=== PATIENT | female | born 1965 | race Caucasian/White ===

== ENCOUNTER → 2017-08-22 | Outpatient (CLI) | payer BC ==
[~2017-08-22] MED LIST: ASPI-482 PO; ATOR20TA58 PO; BENZ-8 PO; CYAN10005 PO; FOLI1TAB16 PO; GABA-586 PO; GLIP5TAB10 PO; IOHEXOL 180 MG/ML 10 ML VIAL. ONE; METF500T4 PO; methylPREDNISolone ACETATE 40 MG/ML VIAL. ONE; methylPREDNISolone ACETATE 80 MG/ML VIAL. ONE
--- NOTE | 2017-08-22 21:23 | PAIN ---
DATE OF SERVICE: 08/22/2017 INITIAL CONSULTATION FOR PAIN CLINIC CHIEF COMPLAINT: Low back and right lower extremity pain. HISTORY OF PRESENT ILLNESS: This is a 52-year-old female who presents with history of pain in the low back, bilateral lower extremities, much worse on the right than the left and going on for about a year and a half and increasing, not a result of any specific injury or accident that she is aware of, but is gradually increasing low back, bilateral lower extremities, mostly in the posterior gluteus, posterior thigh on the right posterior calf and into the foot involving all the toes and numbness and tingling is becoming more constant, throbbing, shooting pain, aching in the right leg as well, worse with standing, walking, changing positions, better with sitting down or lying down, but awakens her from sleep occasionally if she lays on her right side. The patient reports not every night. The patient reports it does not affect her bowel or bladder control, but does affect her ability to walk. She has been stumbling, but not had any falls and she feels that her right leg fatigues much more easily than the left with even just normal activity and walking. The patient reports no complete loss of function, but again significant fatigability. She has tried the gabapentin, which has not been helpful, also some chiropractic treatment in the past, which helped, but it has been almost a year since she has had any of this, has had no other formal physical therapies or other treatments at this time. She is doing some stretching on her own and trying to walk daily, but is becoming much more difficult and uncomfortable. On patient's disability rating, she rates her disability from 0-10, 10 being the worst, as an 8 with family, home responsibilities, recreation, social activity, and sexual behavior, 9 with occupation, 6 with self care, and 0 with life support activity. PAST MEDICAL HISTORY: Significant for type 2 diabetes, sinus congestion, cigarette smoking, smokes about a half pack a day and currently smokes, arthritis, kidney disease with some chronic renal insufficiency, depression, anxiety. PREVIOUS SURGERY: Include nephrectomy on the left, previous total abdominal hysterectomy, cholecystectomy and tonsillectomy. CURRENT MEDICATIONS: Include gabapentin, atorvastatin, metformin, glipizide, and . ALLERGIES: The patient has no known drug allergies. FAMILY HISTORY: Significant for kidney disease, diabetes, Parkinson's disease. SOCIAL HISTORY: The patient drinks 2-3 glasses of mixed drinks daily and smokes half a pack of cigarettes daily. The patient is , lives with her spouse, lives locally in [place], [place] and works in a mostly sitting desk position job. REVIEW OF SYSTEMS: The patient's review of systems is positive for those items mentioned in the history of present illness. All systems reviewed and otherwise negative. It is complete, full and well documented on the patient's chart. PHYSICAL EXAMINATION: VITAL SIGNS: Today, the patient's blood pressure is 139/79, pulse 77, respirations 16, temperature is 98.1 degrees Fahrenheit, height is 5 feet 4 inches, and weight is 250 pounds. GENERAL: The patient is awake, alert, oriented, appropriate, very pleasant demeanor. The patient accompanied by her . HEENT: Head shows normocephalic, atraumatic. Extraocular movements are intact, symmetrical. Oral cavity shows mucous membranes are moist and pink. Dentition is intact. NECK: Shows anterior throat supple without palpable lymphadenopathy noted. Swallow reflex is symmetrical. CHEST: Shows normal on inspection. Breath sounds clear to auscultation bilaterally. HEART: Shows S1, S2 clear. No murmurs auscultated. ABDOMEN: Obese, soft, nontender, nondistended. No palpable organomegaly is noted. No rebound or guarding demonstrated. BACK: Shows spine grossly in the midline. Slight exaggeration of thoracic kyphosis and mild flattening of the lumbar lordotic curvature. No previous bruises, lesions, rashes or scars are noted. The patient's lumbar paraspinous muscle shows symmetrical on inspection. With palpation shows some moderate tenderness throughout the upper, middle and lower distribution of paraspinous muscles bilaterally without radiation, without trigger points or asymmetry. No tenderness over the sacrum or sacroiliac regions over the spinous processes. The patient shows good rotational motion of the lumbar spine, both laterally greater than 10 degrees right and left as well as extension greater than 10 degrees and forward flexion at 45 degrees without pain reported. EXTREMITIES: The patient's lower extremities show deep tendon reflexes at 1+ in the patellar and tendo calcaneus tendons. Motor exam is strong with dorsiflexion, extension, quadriceps and hamstring flexion and equal bilaterally as well. Peripheral pulses are 1+ posterior tibial and dorsalis pedis pulses. No peripheral edema is noted. No clubbing, no cyanosis. Straight leg raise is noted to be positive on the right at approximately 40 degrees and 35 degrees, negative on the left. Gaenslen's and Mac's maneuvers are grossly negative bilaterally. The patient is able to stand. It is difficult to try to stand on her toes as she loses balance with standing on her weight on the right leg, is walking with a slight shuffling gait, appears to favor the right lower extremity with a slight limp. She is not using any assistive devices such as canes or walkers to ambulate. IMPRESSION: 1. This is a 52-year-old female with about a year and a half history of increasing pain in low back, right lower extremity in a radicular fashion. 2. MRI scan of the lumbar spine showing L5-S1 with mild bilateral foraminal narrowing, greater on the right due to disk bulging with multiple levels of mild to moderate foraminal narrowing, greatest at L3-L4, diffuse disk bulging in both neural foramen with small anterior osteophytes and mild bilateral foraminal narrowing. 3. Obesity. 4. Hypertension. 5. Cigarette smoking. 6. Diabetes. 7. Status post nephrectomy with kidney insufficiency. PLAN: Options were discussed with the patient including conservative medical management, physical therapy, interventional techniques and she would like to pursue interventional techniques. We discussed a lumbar epidural steroid injection using description as well as anatomical models to describe the procedure. Risks were then discussed including, but not limited to bleeding, infection, possibility of epidural hematoma and subsequent neurologic compromise, dural puncture, headaches, spinal cord and/or nerve damage, side effects of steroid medication and poor results regarding pain control. The patient understands and wished to proceed. The patient will return to the clinic in approximately 2 weeks for followup, was counseled on return appointment, activity level and side effects to be aware of. DIAGNOSES: Lumbar radiculopathy with lumbar degenerative disk disease. PROCEDURE: Lumbar epidural steroid injection in translaminar approach L4-L5 level using C-arm fluoroscopic guidance under sterile prep and drape using local anesthetic. MEDICATION INJECTED: A total of 120 mg Depo-Medrol plus 10 mL of preservative-free normal saline and 2 mL of Isovue for contrast. CONDITION AT DISCHARGE: Stable. The patient tolerated procedure well, had no complications. JACK VALDERRAMA MD DR: MANDEEP/ariel JOB#: [id number] / [id number] PRABHU Romero MD
== END ==
LOC: PNCL 08:56
PROVIDERS: ATTEND Anesthesiology
DX: M51.16 Intervertebral disc disorders with radiculopathy, lumbar region (principal); F41.9 Anxiety disorder, unspecified; F32.9 Major depressive disorder, single episode, unspecified; E66.9 Obesity, unspecified; I10 Essential (primary) hypertension; F17.210 Nicotine dependence, cigarettes, uncomplicated; E11.9 Type 2 diabetes mellitus without complications; Z90.5 Acquired absence of kidney; Z90.49 Acquired absence of other specified parts of digestive tract; Z90.710 Acquired absence of both cervix and uterus; Z98.890 Other specified postprocedural states
CPT/HCPCS: 62323; J1030; J1040

== ENCOUNTER → 2017-09-05 | Outpatient (CLI) | payer BC ==
--- NOTE | 2017-09-05 19:29 | PAIN ---
DATE OF SERVICE: 09/05/2017 DIAGNOSIS: Lumbar radiculopathy with lumbar degenerative disk disease. HISTORY OF PRESENT ILLNESS: The patient is a 52-year-old female who returns for a followup status post lumbar epidural steroid injection x 1. The patient reports only about 20% improvement after the first injection, but still some pain in the low back, right lower extremity as it was previously. The patient reports the pain is slightly decreased, but still significant pain, rated at 8 on a scale of 10 at its worst, is 7 at its least and 8 on average. The patient reports it is an 8 today. The patient reports it is in the low back, bilateral lumbar paraspinous musculature, radiating to the posterior gluteus, posterior lateral thigh, lateral anterior thigh on the right, posterior thigh, posterior calf and anterior medial calf as well as posterior calf on the right side only. The patient reports it is aching, sharp, cramping, becoming more constant, worse with standing, walking, changing positions, but has been awakening her from sleep when she lays on her right side about every 6 hours. She can reposition usually, get out of bed, change positions or take pain medication which decreases the pain and she can get back to sleep. The patient reports no new motor or sensory deficits, no new bowel or bladder incontinence or other complaints. PHYSICAL EXAMINATION: VITAL SIGNS: The patient's blood pressure is 142/85, pulse is 78, respirations 20, temperature is 98.0 degrees Fahrenheit, height is 5 feet 4 inches, weight is 248 pounds. GENERAL: The patient is awake, alert, oriented, appropriate, has a very pleasant demeanor. HEENT: Shows normocephalic, atraumatic. Extraocular movements are intact, symmetrical. Oral cavity shows mucous membranes moist and pink. Dentition is intact. NECK: Shows anterior throat supple without palpable lymphadenopathy noted. Swallow reflex is symmetrical. CHEST: Shows normal with inspection. Breath sounds are clear to auscultation bilaterally. HEART: Shows S1, S2 clear. No murmurs auscultated. ABDOMEN: Obese, soft, nontender, nondistended. No palpable organomegaly is noted. No rebound or guarding demonstrated. MUSCULOSKELETAL: Back shows spine grossly in the midline, slight exaggeration of the thoracic kyphosis, lumbar lordotic curvature mildly flattened. Lumbar paraspinous muscle shows symmetrical on inspection, with palpation shows some moderate tenderness bilaterally, but only diffusely in the middle and lower distribution of paraspinous muscles. Lower extremities show deep tendon reflexes at 1+/4 in the patellar tendons and tendo-calcaneus tendons. Motor exam is 5/5 with dorsiflexion, extension and equal bilaterally. Peripheral pulses are 1+ posterior tibial. No peripheral edema is noted. No clubbing, no cyanosis. PLAN: Options were discussed with the patient. The patient's old chart was reviewed as her current medication regimen and updated. Current review of systems updated today as well. We will proceed with a second lumbar epidural steroid injection today with fluoroscopic guidance. Risks were again discussed including, but not limited to bleeding, infection, possibility of epidural hematoma, subsequent neurological compromise, dural puncture headaches, spinal cord and/or nerve damage, side effects of steroid medications and poor results regarding pain control. The patient understands and wished to proceed. The patient will return to the clinic in approximately 2 weeks for a followup, was counseled on return appointment, activity level and side effects to be aware of. DIAGNOSIS: Lumbar radiculopathy with lumbar degenerative disease. PROCEDURE: Lumbar epidural steroid injection, translaminar approach, at the L5-S1 level using C-arm fluoroscopic guidance under sterile prep and drape using local anesthetic. MEDICATIONS INJECTED: A total of 120 mg of Depo-Medrol plus 10 mL of preservative-free normal saline and 2 mL of Isovue for contrast. CONDITION AT DISCHARGE: Stable. The patient tolerated the procedure well, had no complications. JACK VALDERRAMA MD DR: MANDEEP/ariel JOB#: [id number] / [id number]
== END | disposition home or self-care (01) ==
LOC: PNCL 08:33
PROVIDERS: ATTEND Anesthesiology
DX: M51.16 Intervertebral disc disorders with radiculopathy, lumbar region (principal)
CPT/HCPCS: 62323; J1030; J1040

== ENCOUNTER → 2017-09-19 | Outpatient (CLI) | payer BC ==
--- NOTE | 2017-09-19 15:16 | PAIN ---
DATE OF SERVICE: 09/19/2017 PROGRESS NOTE FOR PAIN CLINIC DIAGNOSES: Lumbar radiculopathy with lumbar degenerative disk disease. HISTORY OF PRESENT ILLNESS: A 52-year-old female who returns for followup status post lumbar epidural steroid injections x 2. The patient reports only about 15% improvement or so, but still some significant improvement that she is noticing in her low back and left leg. The patient still with some significant pain in the leg as previously, but no new motor or sensory deficits, no new bowel or bladder incontinence. The patient reports that after the injection, she did well for several days following it and it has only returned by about 1 week or so. The patient reports the pain is an 8 on a scale of 10 at least to most and it averages 8 today. The patient reports it is radiating and not in the left leg, but in the right lower extremity, low back, posterior gluteus, posterior thigh, posterior calf to the ankle, aching, cramping and becoming more constant with time, worse with standing, walking, changing positions, better with sitting down or lying down, but it does awaken her from sleep. She lays on her right side. Most night she has to reposition, take pain medication to go to bed. She also has some pain in the base of the neck and her left shoulder, which has only come up recently, but has been getting better on its own. She feels that she may have slept on it strangely. The patient reports she is otherwise doing well. No new motor or sensory deficits, no bowel or bladder incontinence or other complaints. PHYSICAL EXAMINATION: VITAL SIGNS: Today's blood pressure is 139/93, pulse 101, respirations are 18, temperature is 98.2 degrees Fahrenheit. Height is 5 feet 4 inches, weight is 230 pounds. GENERAL: Awake, alert, oriented, appropriate, very pleasant demeanor. HEENT: Shows normocephalic, atraumatic. Extraocular movements are intact, symmetrical. Oral cavity: Mucous membranes moist and pink. Dentition is intact. NECK: Shows anterior throat supple without palpable lymphadenopathy noted. Swallow reflex symmetrical. CHEST: Normal on inspection. Breath sounds clear to auscultation bilaterally. HEART: Shows S1, S2 clear. No murmurs auscultated. ABDOMEN: Obese, soft, nontender, nondistended. No palpable organomegaly. No rebound or guarding demonstrated. BACK: Shows spine grossly midline. Slight exaggeration of thoracic kyphosis and mild flattening of lordotic curvature. No previous bruises, lesions, rashes or scars are noted on the skin. Lumbar paraspinous muscle shows symmetrical inspection, with palpation shows some moderate tenderness diffusely in the low lumbar distribution bilaterally, but only with deeper palpation. No radiation of pain is demonstrated. The patient has full rotational motion of lumbar spine, both laterally as well as extension and flexion without difficulty. EXTREMITIES: Lower extremities show deep tendon reflexes, 1+ in the patella and tendocalcaneous tendons are equal. Motor exam is strong with 5/5 dorsiflexion, extension, quadriceps and hamstring flexion and symmetrical. Peripheral pulses are 1+ posterior tibia. No peripheral edema is noted. Options were discussed with the patient. The patient's old chart was reviewed as her current medication regimen updated. Current review of systems updated today as well. We will proceed with a third in the series of lumbar epidural steroid injection today with fluoroscopic guidance. Risks were again discussed including, but not limited to bleeding, infection, possibility of epidural hematoma, subsequent neurological compromise, dural puncture, headaches, spinal cord and/or nerve damage, side effects of steroid medication and poor results regarding pain control. The patient understands and wished to proceed. The patient will return to clinic in approximately 2 weeks for followup, was counseled on return appointment, activity level and side effects to be aware of. DIAGNOSIS: Lumbar radiculopathy with lumbar degenerative disease. PROCEDURE: Lumbar epidural steroid injection, translaminar approach L5-S1 level using C-arm fluoroscopic guidance under sterile prep and drape using local anesthetic. Medication injected a total of 120 mg Depo-Medrol plus 10 mL of preservative normal saline and 2 mL of Isovue for contrast. CONDITION AT DISCHARGE: Stable. The patient tolerated procedure well, had no complications. JACK VALDERRAMA MD DR: MANDEEP/ariel JOB#: [id number] / [id number]
== END | disposition home or self-care (01) ==
LOC: PNCL 08:32
PROVIDERS: ATTEND Anesthesiology
DX: M51.16 Intervertebral disc disorders with radiculopathy, lumbar region (principal)
CPT/HCPCS: 62323; J1030; J1040